=== PATIENT | female | born 1995 | race African-American/Black ===

== ENCOUNTER 2019-05-05 17:33 | Emergency (ER) | payer MEDICAID ==
--- NOTE | 2019-05-05 17:53 | ED Physician Chart ---
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 Review:: Nurse's Note Reviewed, Old Chart Reviewed <Trevon Means - Last Filed: 05/05/19 18:57> - Patient Information Allergies:: Allergies Allergy/AdvReac Type Severity Reaction Status Date / Time No Known Allergies Allergy Verified 05/05/19 17:56 Vitals:: Vital Signs - 8 hr 05/05/19 05/05/19 17:57 19:38 Temp 98.6 F 98.5 F HR 67 74 RR 15 19 BP 119/71 114/67 O2 Sat % 99 100 <Johny Hu - Last Filed: 05/05/19 20:16> ED Review of Systems - Review of Systems General/Constitutional: No fever, No chills, No weight loss, No weakness, No diaphoresis, No edema, No loss of appetite Skin: No skin lesions, No rash, No bruising Head: No headache, No light-headedness Eyes: No loss of vision, No pain, No diplopia ENT: No earache, No nasal drainage, No sore throat, No tinnitus Neck: No neck pain, No swelling, No thyromegaly, No stiffness, No mass noted Cardio Vascular: No chest pain, No palpitations, No PND, No orthopnea, No edema Pulmonary: No SOB, No cough, No sputum, No wheezing GI: Nausea, Vomiting, Diarrhea, Pain, No melena, No hematochezia, No constipation, No hematemesis G/U: No dysuria, No frequency, No hematuria [employer]mer: No vaginal discharge, No abnormal vaginal bleed, No contraction Musculoskeletal: No bone or joint pain, No back pain, No muscle pain Endocrine: No polyuria, No polydipsia Psychiatric: No prior psych history, No depression, No anxiety, No suicidal ideation, No homicidal ideation, No auditory hallucination, No visual hallucination Hematopoietic: No bruising, No lymphadenopathy Allergic/Immuno: No urticaria, No angioedema Neurological: No syncope, No focal symptoms, No weakness, No paresthesia, No headache, No seizure, No dizziness, No confusion, No vertigo <Trevon Means Last Filed: 05/05/19 18:57> ED Past Medical History - Past Medical History Obtainable: Yes Past Medical History: No significant medical hx Family History: None Social History: Non Smoker, No Alcohol, No Drug Use, Single, Lives With Parents Surgical History: None Psychiatricy History: None Medication: Reviewed <Trevon Means Filed: 05/05/19 18:57> Family Medical History - Family Member Mother History Unknown: Yes <Trevon Means Filed: 05/05/19 18:57> ED Physical Exam - Physical Examination General/Constitutional: Awake, Well-developed, well-nourished, Alert, No distress, GCS 15, Non-toxic appearing, Ambulatory Head: Atraumatic Eyes: Lids, conjuctiva normal, PERRL, EOMI Skin: Nl inspection, No rash, No skin lesions, No ecchymosis, Well hydrated, No lymphadenopathy ENMT: External ears, nose nl, TM canals nl, Nasal exam nl, Lips, teeth, gums nl , Oropharynx nl, Tonsils nl Neck: Nontender, Full ROM w/o pain, No JVD, No nuchal rigidity, No bruit, No mass, No stridor Respiratory: Nl effort/Exclusion, Clear to Auscultation, No Wheeze/Rhonchi/Rales Cardio Vascular: RRR, No murmur, gallop, rubs, NL S1 S2, Carotid/Femoral/Distal pulses equal bilaterally GI: No tenderness/rebounding/guarding, No organomegaly, No hernia, Normal BS's, Nondistended, No mass/bruits, No McBurney tenderness : No CVA tenderness Extremities: No tenderness or effusion, Full ROM, normal strength in all extremities, No edema, Normal digits & nails Neuro/Psych: Alert/oriented, DTR's symmetric, Normal sensory exam, Normal motor strength, Judgement/insight normal, Mood normal, Normal gait, No focal deficits Misc: Normal back, No paraspinal tenderness <Trevon Means - Last Filed: 05/05/19 18:57> ED Labs/Radiology/EKG Results - Lab Results Results: Laboratory Tests 05/05/19 05/05/19 05/05/19 17:30 18:10 18:10 WBC 6.5 RBC 4.11 Hgb 12.0 Hct 35.3 L MCV 85.9 MCH 29.3 MCHC Differential 34.1 RDW 12.4 Plt Count 203 MPV 9.9 Neutrophils % 52.3 Lymphocytes % 32.7 Monocytes % 10.7 H Eosinophils % 3.9 Basophils % 0.4 Sodium 138 Potassium 4.0 Chloride 105 Carbon Dioxide 26.9 Anion Gap 10.1 BUN 11 Creatinine 0.7 Est GFR ( Amer) > 60.0 Est GFR (Non-Af Amer) > 60.0 BUN/Creatinine Ratio 15.7 Glucose 94 Calcium 9.3 Total Bilirubin 0.3 AST 16 ALT 9 Alkaline Phosphatase 44 Troponin I Total Protein 7.1 Albumin 4.3 Globulin 2.8 Albumin/Globulin Ratio 1.5 Amylase 80 Lipase 34 Serum , Qual Urine Source CLEAN C Urine Color YELLOW Urine Clarity CLEAR Urine pH 5.5 Ur Specific [place] 1.020 Urine Protein NEGATIVE Urine Glucose (UA) NEGATIVE Urine Ketones NEGATIVE Urine Blood TRACE Urine Nitrate NEGATIVE Urine Bilirubin NEGATIVE Urine Urobilinogen 0.2 Ur Leukocyte Esterase SMALL H Urine RBC 2-5 Urine WBC 0-2 Ur Epithelial Cells MODERATE Urine Bacteria 2+ H 05/05/19 05/05/19 18:10 18:10 WBC RBC Hgb Hct MCV MCH MCHC Differential RDW Plt Count MPV Neutrophils % Lymphocytes % Monocytes % Eosinophils % Basophils % Sodium Potassium Chloride Carbon Dioxide Anion Gap BUN Creatinine Est GFR ( Amer) Est GFR (Non-Af Amer) BUN/Creatinine Ratio Glucose Calcium Total Bilirubin AST ALT Alkaline Phosphatase Troponin I < 0.01 L Total Protein Albumin Globulin Albumin/Globulin Ratio Amylase Lipase Serum , Qual NEGATIVE Urine Source Urine Color Urine Clarity Urine pH Ur Specific [place] Urine Protein Urine Glucose (UA) Urine Ketones Urine Blood Urine Nitrate Urine Bilirubin Urine Urobilinogen Ur Leukocyte Esterase Urine RBC Urine WBC Ur Epithelial Cells Urine Bacteria <Johny Hu - Last Filed: 05/05/19 20:16> ED Assessment - Assessment General Assessment: the patient was re-examined and there was no localized tenderness in the lower abdomen. the urine results was consistent with a uti and he patient was given rocephin and there was less tenderness of the lower abdomen. <Johny Hu - Last Filed: 05/05/19 20:16> ED Septic Shock - . Is Septic Shock (SBP<90, OR Lactate>4 mmol\L) present?: No <Trevon Means - Last Filed: 05/05/19 18:57> - <6hrs of presentation: Vital Signs: Vital Signs - 8 hr 05/05/19 05/05/19 17:57 19:38 Temp 98.6 F 98.5 F HR 67 74 RR 15 19 BP 119/71 114/67 O2 Sat % 99 100 <Johny Hu - Last Filed: 05/05/19 20:16> ED Reassessment (Disposition) - Reassessment Reassessment Condition:: Improved - Diagnosis Diagnosis:: Abdominal Pain; Diarrhea; AGE; Headaches; UTI; Hematuria <Trevon Means - Last Filed: 05/05/19 18:57> - Diagnosis Diagnosis:: urinary tract infection constipation - Aftercare/Follow up Instructions Aftercare/Follow-Up Instructions:: Counseled pt regarding lab results/diagnosis & need follow up, Refer to Discharge Instructions, Counseled pt & family regarding lab results/diagnosis & need follow up Medication Prescribed:: pericaniya amaral-krishna - Patient Disposition Discharge/Transfer:: Home Condition at Disposition:: Improved <Johny Hu - Last Filed: 05/05/19 20:16>
[2019-05-05] MEDS ORDERED: Sodium Chloride 0.9% 1,000 ML IV ONE (17:55)
[2019-05-05 18:21] LABS: % BASOPHILS 0.4 % (0.0-2.0); % EOSINOPHILS 3.9 % (0.0-5.0); % LYMPHOCYTES 32.7 % (20.0-50.0); % MONOCYTES 10.7 % (2.0-10.0); % NEUTROPHILS 52.3 % (40.0-80.0); EOSINOPHILE ABSOLUTE 0.3 Th/cmm (0.1-0.4); HEMATOCRIT 35.3 % (41.0-60); LYMPHOCYTE ABSOLUTE 2.1 Th/cmm (1.5-3.0); MEAN CELL VOLUME 85.9 fl (81-100); MEAN CORPUSCULAR HEMOGLOBIN 29.3 pg (27.0-31.0); MEAN CORPUSCULAR HGB CONC 34.1 pg (28.0-36.0); MONOCYTE ABSOLUTE 0.7 Th/cmm (0.3-1.0); NEUTROPHILE ABSOLUTE 3.4 Th/cmm (1.8-8.0); PLATELET COUNT 203 Th/cmm (150-400); RED BLOOD COUNT 4.11 Mil/cmm (3.80-5.10); RED CELL DISTRIBUTION WIDTH 12.4 % (11.5-20.0); WHITE BLOOD COUNT 6.5 Th/cmm (4.8-10.8)
[2019-05-05 18:33] LABS: ALB/GLOB RATIO 1.5 (1.0-1.8); ALBUMIN 4.3 gm/dL (3.7-5.3); ALKALINE PHOSPHATASE 44 U/L (34-104); AMYLASE SERUM 80 U/L (29-103); ANION GAP 10.1 (7.0-16.0); BILIRUBIN,TOTAL 0.3 mg/dL (0.3-1.0); BUN - UREA NITROGEN 11 mg/dL (7-25); CALCIUM SERUM 9.3 mg/dL (8.6-10.3); CARBON DIOXIDE 26.9 mEq/L (21.0-31.0); CHLORIDE 105 mEq/L (98-107); CREATININE - SERUM 0.7 mg/dL (0.6-1.2); GFR AFRICAN-AMERICAN > 60.0 ml/min (>90); GFR NON AFRICAN-AMERICAN > 60.0 ml/min; GLUCOSE 94 mg/dL (70-105); LIPASE 34 U/L (11-82); SGOT 16 U/L (13-39); SGPT/ALT 9 U/L (7-52); SODIUM SERUM 138 mEq/L (136-145); TOTAL PROTEIN,SERUM 7.1 gm/dL (6.0-8.3)
[2019-05-05 18:41] LABS: URINE SOURCE CLEAN C
[2019-05-05 18:44] LABS: URINE BILIRUBIN NEGATIVE (NEGATIVE); URINE BLOOD TRACE (NEGATIVE); URINE GLUCOSE (UA) NEGATIVE (NEGATIVE); URINE KETONE NEGATIVE (NEGATIVE); URINE LEUKOCYTE ESTERASE SMALL (NEGATIVE); URINE MICROSCOPIC INDICATED? YES; URINE NITRATE NEGATIVE (NEGATIVE); URINE PH 5.5 (4.6 - 8.0); URINE PROTEIN NEGATIVE (NEGATIVE); URINE UROBILINOGEN 0.2 E.U./dL (0.2 - 1.0)
[2019-05-05 18:46] LABS: URINE CLARITY CLEAR (CLEAR); URINE COLOR YELLOW
[2019-05-05 18:51] LABS: URINE EPITHELIAL CELLS MODERATE /lpf (FEW); URINE WBC 0-2 /hpf (0-5)
[2019-05-05 18:52] LABS: URINE BACTERIA 2+ /hpf (NONE SEEN)
[2019-05-05] MEDS ORDERED: cefTRIAXone 1 GM in Sodium Chloride 0.9% 50 ML IV ONE (18:57)
[2019-05-05] MEDS ORDERED: IOHEXOL 300mgI/mL 100 ML VIAL ONE (19:13)
--- NOTE | 2019-05-06 09:59 | Diagnostic Imaging Report ---
CT abdomen and pelvis with intravenous contrast Indication: Abdominal pain, nausea and vomiting. Comparison: None, Technique: Axial images were obtained from the lung bases to the bilateral proximal femurs with IV contrast. Coronal reconstructions were made. total DLP: [id number], CTDI8.5 FINDINGS: There is elevation of the right diaphragm. Hypoventilatory changes of the lung bases are noted greatest in the right base. No evidence of focal hepatic lesions. There is diffuse heterogeneous mass within the kidneys. There may be diffuse bilateral renal medullary calcifications. There is a 1 cm right renal cyst. There is an area of soft tissue density superior and to the left of the adrenal gland which probably represents the pancreas. Significant stool is seen throughout the colon. Multiple fluid-filled loops of small bowel are also noted. Generalized gas-filled loops of bowel are also noted. Partially visualized appendix is noted with air and high density which may be due to secretions. There is also urinary bladder wall thickening. No gross free fluid or free air. The osseous structures demonstrate no acute abnormalities. IMPRESSION: Significant stool throughout the colon with gas loops of bowel. Correlate clinically for constipation Additional fluid-filled loops of small bowel along the lower abdomen and pelvic region possibly due to inflammatory process and enteritis. A partially visualized air-filled appendix. No evidence of acute appendicitis. High density in the appendix may be due to secretions. 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 Ultrasound correlation would be of value for further assessment 1 cm right renal cyst. Soft tissue density superior to the left adrenal gland probably representing the ute pancreas. Otherwise no adrenal lesions. A follow-up CT with oral contrast would provide further additional detail and assessment.
== END 2019-05-05 20:40 | disposition home or self-care (01) ==
LOC: ER 17:33
DX: K52.9 Noninfective gastroenteritis and colitis, unspecified (principal); N39.0 Urinary tract infection, site not specified; K59.00 Constipation, unspecified; R31.9 Hematuria, unspecified
CPT/HCPCS: 99284; 96365; 74177; 84484; 36415; 85025; 87086; 81001; 82150; 84703; 83690; 80053; J0696; J7030; Q9967